=== PATIENT | male | born 1950 | race Caucasian/White ===

== ENCOUNTER 2019-03-15 16:14 | Emergency (ER) | payer MEDICARE ==
[~2019-03-15] VITALS: Ht 185.4 cm; Wt 90.7 kg
[2019-03-15] MEDS ORDERED: WELLBUTRIN SR100 MG ORAL (16:30)
[2019-03-15] MEDS ORDERED: TRAZODONE HCL100 MG ORAL (16:30)
--- NOTE | 2019-03-15 16:31 | NUR ---
ED Nurse Note: Pt came into the ER due to bug bites all over his body x 1 week. Pt denies having pain. Inflammation noted on the left wrist. Pt is A + O x4. Ambulatory. Skin warm to touch.
[2019-03-15 16:33] VITALS: BP 121/83
--- NOTE | 2019-03-15 17:09 | Emergency Room Report ---
History of Present Illness General Chief Complaint: Allergic Reaction Source: Patient Present Illness HPI 68-year-old male presents to the emergency department complaining of having multiple insect bites that he has acquired while sitting at a mode how he reports moderate itching he states several have surrounding erythema and increased warmth. Denies recent travel or ill contacts with similar symptoms.He states he is UTD with his vaccinations including Tdap. sustained while at motel. Pt. denies fevers, chills or swollen tender lymph nodes. Denies lesions/rashes elsewhere on the body. Denies new medications or body washes or creams. Denies swelling of the lips, tongue , throat or airway. Denies wheezing, or shortness of breath. Denies recent travel, recent illness or ill contacts. denies blisters, oral lesions, or sloughing of the skin Allergies: Coded Allergies: No Known Allergies (Unverified , 03/15/19) Patient History Past Medical History: see triage record Past Surgical History: none Pertinent Family History: none Immunizations: UTD Reviewed Nursing Documentation: PMH: Agreed; PSxH: Agreed Nursing Documentation-PMH Past Medical History: No History, Except For History Of Psychiatric Problem: Yes - DEPRESSION Review of Systems All Other Systems: negative except mentioned in HPI Physical Exam Vital Signs Date Time Temp Pulse Resp B/P (MAP) Pulse Ox O2 Delivery O2 Flow Rate FiO2 03/15/19 16:24 97.5 73 16 124/80 94 Room Air 03/15/19 16:33 95 Sp02 EP Interpretation: reviewed, normal General Appearance: no apparent distress, alert, GCS 15, non-toxic Head: normocephalic, atraumatic Eyes: bilateral eye normal inspection, bilateral eye PERRL ENT: hearing grossly normal, no angioedema, normal voice, other - no stridor Neck: full range of motion Respiratory: chest non-tender, lungs clear, normal breath sounds, no wheezing, speaking full sentences Cardiovascular #1: regular rate, rhythm, no edema, normal capillary refill Musculoskeletal: back normal, gait/station normal, normal range of motion, non- tender Neurologic: alert, oriented x3, responsive, motor strength/tone normal, sensory intact, speech normal, grossly normal Psychiatric: judgement/insight normal Skin: normal color, warm/dry, well hydrated, other - multiple insect bites, localized reaction and cellulitis- erythema and warmth of a bite proximal to the right knee. no blisters or vesicles. Lymphatic: no adenopathy Medical Decision Making PA Attestation Dr. Lemos is my supervising Physician whom patient management has been discussed with. Diagnostic Impression: Primary Impression: Insect bites of multiple sites, infected ER Course 68-year-old male presents to the emergency department complaining of having multiple insect bites that he has acquired while sitting at a mode how he reports moderate itching he states several have surrounding erythema and increased warmth. Denies recent travel or ill contacts with similar symptoms.He states he is UTD with his vaccinations including Tdap. sustained while at motel. Pt. denies fevers, chills or swollen tender lymph nodes. Denies lesions/rashes elsewhere on the body. Denies new medications or body washes or creams. Denies swelling of the lips, tongue , throat or airway. Denies wheezing, or shortness of breath. Denies recent travel, recent illness or ill contacts. denies blisters, oral lesions, or sloughing of the skin Ddx considered but are not limited to cellulitis, scabies, insect bites, tic bites, spider bites, contact dermatitis, Drug reaction, allergic reaction, fungal infection, lice. Vital signs: are WNL, pt. is afebrile H&PE are most consistent with multiple insect bites, localized reaction and cellulitis of bite proximal to the right knee. ORDERS: none required at this time, the diagnosis is clinical ED INTERVENTIONS: None required at this time. DISCHARGE: At this time pt. is stable for d/c to home. Will provide printed patient care instructions, and any necessary prescriptions. Care plan and follow up instructions have been discussed with the patient prior to discharge. Last Vital Signs Date Time Temp Pulse Resp B/P (MAP) Pulse Ox O2 Delivery O2 Flow Rate FiO2 03/15/19 16:33 97.3 63 20 121/83 98 Room Air 03/15/19 16:33 95 Status: improved Disposition: HOME, SELF-CARE Condition: Stable Scripts Hydrocortisone 2% Cream (ANTI-ITCH 2% CREAM) Y Cr 1 APPLIC TP Q6HR, #22 GM 2 Refills Prov: Mary Cote 03/15/19 Diphenhydramine Hcl (BENADRYL ALLERGY) 25 Mg Tablet 25 MG PO Q6HR, #30 TAB Prov: Mary Cote 03/15/19 Cephalexin* (KEFLEX*) 500 Mg Capsule 500 MG ORAL EVERY 12 HOURS for 7 Days, #14 CAP 0 Refills Prov: Mary Cote 03/15/19 Patient Instructions: Cellulitis, [id number], Insect Bite, [id number] Additional Instructions: Take medications as directed. Follow up with a Primary Care Provider in 3-5 days, even if your symptoms have resolved. --Please review list of primary care clinics, if you do not already have a primary care provider Return sooner to ED if new symptoms occur, or current symptoms become worse. - Please note that this Emergency Department Report was dictated using [employer] slotter operator technology software, occasionally this can lead to erroneous entry secondary to interpretation by the dictation equipment. Mary Cote Mar 15, 2019 17:09
[2019-03-15] MEDS ORDERED: BENADRYL ALLERG25 M1 PO (17:10)
[2019-03-15] MEDS ORDERED: ANTI-ITCH28 G1 TP (17:10)
[2019-03-15] MEDS ORDERED: CEPHALEXIN500 MG ORAL (17:10)
[2019-03-15 17:15] VITALS: BP 120/85
--- NOTE | 2019-03-15 17:16 | NUR ---
ER DISCHARGE NOTE: Patient is cleared to be discharged per ERMD, pt is aox4, on room air, with stable vital signs. pt was given dc and prescription instructions, pt was able to verbalize understanding, pt id band removed without complications. pt is able to ambulate with steady gait. pt took all belongings.
== END 2019-03-15 17:15 | disposition home or self-care (01) ==
LOC: EMR 17:10
DX: S80.261A Insect bite (nonvenomous), right knee, initial encounter (principal); W57.XXXA Bitten or stung by nonvenomous insect and other nonvenomous arthropods, initial encounter; Y92.9 Unspecified place or not applicable; F32.9 Major depressive disorder, single episode, unspecified
CPT/HCPCS: 99282

== ENCOUNTER 2019-06-04 20:59 | Emergency (ER) | payer MEDICARE, MEDICAID ==
[~2019-06-04] VITALS: Ht 185.4 cm; Wt 90.7 kg
[~2019-06-04 20:59] MED LIST: ANTI-ITCH28 G1 TP; BENADRYL ALLERG25 M1 PO; CEPHALEXIN500 MG ORAL; TRAZODONE HCL100 MG ORAL; WELLBUTRIN SR100 MG ORAL
--- NOTE | 2019-06-04 21:15 | NUR ---
ED Nurse Note: recieved pg from home with c/o left leg laceration, pt hit leg on side of pool and has non-bleeding laceration, pt deneis injury to any other area, pt has no cp, no sob, states just needs a stitch or two.
[2019-06-04 22:25] VITALS: BP 136/69
--- NOTE | 2019-06-04 22:25 | NUR ---
ED Nurse Note: ER DISCHARGE NOTE: Patient is cleared to be discharged per ERMD, pt is aox4, on room air, with stable vital signs. pt was given dc and prescription instructions, pt was able to verbalize understanding, pt id band removed without complications. pt is able to ambulate with steady gait. pt took all belongings.
--- NOTE | 2019-06-04 23:36 | Emergency Room Report ---
History of Present Illness General Chief Complaint: Lower Extremity Injury Source: Patient Present Illness HPI Patient presents with complaints of injury to the left lower leg reports an hour before arrival as he was getting out of the Pool he had a slip back downward injuring his left mid leg area Denies any loss of consciousness Denies any head injury patient has localized discomfort to the left anterior leg The cut appeared to be too large to close with tape and presents for further eval Allergies: Coded Allergies: No Known Allergies (Unverified , 03/15/19) Patient History Past Medical History: see triage record Pertinent Family History: none Reviewed Nursing Documentation: PMH: Agreed; PSxH: Agreed Nursing Documentation-PMH Past Medical History: No Stated History Review of Systems All Other Systems: negative except mentioned in HPI Physical Exam Vital Signs Date Time Temp Pulse Resp B/P (MAP) Pulse Ox O2 Delivery O2 Flow Rate FiO2 06/04/19 21:03 98.6 71 14 140/73 (95) 94 Room Air Sp02 EP Interpretation: reviewed, normal General Appearance: well appearing, no apparent distress Head: normocephalic, atraumatic Eyes: bilateral eye PERRL, bilateral eye EOMI ENT: hearing grossly normal, normal pharynx Neck: supple Respiratory: lungs clear, no respiratory distress, no retraction Cardiovascular #1: regular rate, rhythm Gastrointestinal: non tender, soft Musculoskeletal: normal inspection Neurologic: alert, oriented x3, responsive Psychiatric: normal inspection Skin: other - Approximately 1 cm laceration and skin abrasion left mid anterior tibial region no associated ecchymosis or expanding hematoma Lymphatic: no adenopathy Procedures Laceration/Wound Repair Laceration/Wound Repair : Consent: Verbal Wound Location: lower extremity Wound's Depth, Shape: into muscle Wound Length (cm): 1 Wound Explored: clean Irrigated w/ Saline (ccs): 200 Wound Debrided: minimal Wound Repaired With: sutures Suture Size/Type: 5:0 Number of Sutures: 1 Patient Tolerated: Well Complications: None Progress One suture at the midpoint of the laceration was applied with good approximation 2 Steri-Strips were applied one above and below the suture with appropriate approximation Medical Decision Making Diagnostic Impression: Primary Impression: laceration ER Course Patient had laceration repair as noted in the progress note patient tolerated the procedure well and at this time is stable for close outpatient follow-up Last Vital Signs Date Time Temp Pulse Resp B/P (MAP) Pulse Ox O2 Delivery O2 Flow Rate FiO2 06/04/19 22:25 98.4 85 16 136/69 99 Room Air Status: improved Disposition: HOME, SELF-CARE Condition: Improved Referrals: NON PHYSICIAN (PCP) PCP Patient Instructions: Laceration Care, Adult, [id number] Additional Instructions: Patient is provided with the discharge instructions notified to follow up with primary doctor in the next 2-3 days otherwise return to the er with any worsening symptoms. Please note that this report is being documented using [employer] technology. This can lead to erroneous entry secondary to incorrect interpretation by the dictating instrument. Aminta Garcia DO Jun 04, 2019 23:36
== END 2019-06-04 22:25 | disposition home or self-care (01) ==
LOC: EMR 21:41
DX: S81.812A Laceration without foreign body, left lower leg, initial encounter (principal); W01.0XXA Fall on same level from slipping, tripping and stumbling without subsequent striking against object, initial encounter; Y92.9 Unspecified place or not applicable
CPT/HCPCS: 99282

== ENCOUNTER 2019-06-13 23:33 | Emergency (ER) | payer MEDICARE, MEDICAID ==
[~2019-06-13] VITALS: Ht 185.4 cm; Wt 90.7 kg
[2019-06-13 23:49] VITALS: BP 134/78
--- NOTE | 2019-06-13 23:49 | NUR ---
ED Nurse Note: Patient presents with intentions to have sutures removed from left estrada area. Has been in 9 days.
--- NOTE | 2019-06-14 00:02 | Emergency Room Report ---
History of Present Illness General Chief Complaint: Wound Recheck/Suture Removal Source: Patient Present Illness HPI 68-year-old male presents for suture removal, 9 days ago he hurt his left estrada, no fevers no chills, he endorses some sharp pain with movement that has since resolved, patient presents for evaluation and suture removal Allergies: Coded Allergies: No Known Allergies (Unverified , 03/15/19) Patient History Past Medical History: see triage record Reviewed Nursing Documentation: PMH: Agreed; PSxH: Agreed Nursing Documentation-PMH Past Medical History: No Stated History Review of Systems All Other Systems: negative except mentioned in HPI Physical Exam Vital Signs Date Time Temp Pulse Resp B/P (MAP) Pulse Ox O2 Delivery O2 Flow Rate FiO2 06/13/19 23:39 98.1 64 14 134/78 (96) 94 Room Air Sp02 EP Interpretation: reviewed, normal General Appearance: well appearing, no apparent distress, alert Head: normocephalic, atraumatic Eyes: bilateral eye PERRL, bilateral eye EOMI ENT: uvula midline, moist mucus membranes Neck: supple, thyroid normal, supple/symm/no masses Respiratory: lungs clear, no respiratory distress, no retraction, no accessory muscle use Cardiovascular #1: normal peripheral pulses, regular rate, rhythm, no edema, no gallop, no murmur Gastrointestinal: non tender, soft, no guarding, no rebound Musculoskeletal: normal inspection Neurologic: alert, oriented x3 Psychiatric: mood/affect normal Skin: warm/dry, other - Wound left estrada, suture in place, wound clean dry and intact, Procedures Additional Procedure Procedure Narrative Suture removed from left estrada, Medical Decision Making Diagnostic Impression: Primary Impression: Encounter for removal of sutures ER Course Suture removed, disposition home with return precautions Last Vital Signs Date Time Temp Pulse Resp B/P (MAP) Pulse Ox O2 Delivery O2 Flow Rate FiO2 06/13/19 23:49 98.1 82 14 134/78 94 Room Air Disposition: HOME, SELF-CARE Condition: Improved Referrals: [facility] Patient Instructions: Wound Check Additional Instructions: The patient was provided with discharge instructions, notified to follow-up with a primary care doctor and or specialist in the next 24-48 hours, and to return to the ED if they have worsening of their symptoms. Please note that this report is being documented using [employer] technology. This can lead to erroneous entry secondary to incorrect interpretation by the dictating instrument. Rosas Sellers MD Jun 14, 2019 00:02
[2019-06-14 00:07] VITALS: BP 134/78
--- NOTE | 2019-06-14 00:07 | NUR ---
ED Nurse Note: Patient cleared for discharge, verbalized understanding of discharge instructions. ID band removed, patient departed with all belongings.
== END 2019-06-14 00:10 | disposition home or self-care (01) ==
LOC: EMR 23:59
DX: Z48.02 Encounter for removal of sutures (principal)
CPT/HCPCS: 99281

== ENCOUNTER 2019-08-18 13:55 | Emergency (ER) | payer MEDICARE, MEDICAID ==
[~2019-08-18] VITALS: Ht 185.4 cm; Wt 90.7 kg
[2019-08-18 14:45] VITALS: BP 138/75
--- NOTE | 2019-08-18 15:06 | Diagnostic Imaging Report ---
Indication: Right elbow pain Findings: 3 views of the right elbow were obtained. No acute fractures, malalignment, erosions or periostitis are identified. Tissue swelling in the area of the olecranon.. Impression: No acute fracture. Olecranon bursitis versus contusion
--- NOTE | 2019-08-18 15:08 | Emergency Room Report ---
History of Present Illness General Chief Complaint: Skin Rash/Abscess Source: Patient Present Illness HPI 69-year-old male with no significant past medical history here requesting aspiration of fluid in the right elbow. Patient reports that he fell on his elbow 1 week ago and his primary care noticed some erythema that started a day ago and fluid buildup in the right elbow started him on Keflex and sent him to drug regulatory affairs specialist for aspiration of fluid. However patient insurance was not accepted by the drug regulatory affairs specialist and patient came to the emergency room for aspiration. Patient has full range of motion of his elbow and rating the pain 5 out of 10 denying any pain radiation tingling numbness. Denies history of gout, diabetes, hypertension. Has not taken medication for pain. Denies fever and chills, chest pain shortness of breath. I made patient aware of the fact that he needs to follow-up with drug regulatory affairs specialist and aspiration will not take place in the emergency room patient agrees to follow- up with drug regulatory affairs specialist and I gave him a list of drug regulatory affairs specialist Allergies: Coded Allergies: No Known Allergies (Unverified , 03/15/19) Patient History Past Medical History: see triage record Past Surgical History: unable to obtain Pertinent Family History: none Immunizations: UTD Reviewed Nursing Documentation: PMH: Agreed; PSxH: Agreed Nursing Documentation-PMH Past Medical History: No Stated History Review of Systems All Other Systems: negative except mentioned in HPI Physical Exam Vital Signs Date Time Temp Pulse Resp B/P (MAP) Pulse Ox O2 Delivery O2 Flow Rate FiO2 08/18/19 14:05 97.0 58 16 138/75 (96) 97 Room Air Sp02 EP Interpretation: reviewed, normal General Appearance: no apparent distress, alert, GCS 15, non-toxic Head: normocephalic, atraumatic Eyes: bilateral eye normal inspection, bilateral eye PERRL ENT: hearing grossly normal, normal pharynx, no angioedema, normal voice Neck: full range of motion, supple/symm/no masses Respiratory: chest non-tender, lungs clear, normal breath sounds, speaking full sentences Cardiovascular #1: regular rate, rhythm, no edema, no murmur, normal capillary refill Cardiovascular #2: 2+ radial (R), 2+ radial (L) Gastrointestinal: normal bowel sounds, non tender, soft, non-distended, no guarding, no rebound Rectal: deferred Genitourinary: no CVA tenderness Musculoskeletal: back normal, gait/station normal, normal range of motion, non- tender, no calf tenderness, swelling - right elbow Neurologic: alert, oriented x3, responsive, motor strength/tone normal, sensory intact, speech normal Psychiatric: judgement/insight normal, memory normal, mood/affect normal, no suicidal/homicidal ideation Skin: other - right elbow bursitis Lymphatic: no adenopathy Medical Decision Making PA Attestation All my diagnosis and treatment plans were reviewed ad discussed with my supervising physician Dr. Morocho Diagnostic Impression: Primary Impression: Olecranon bursitis ER Course 69-year-old male with no significant past medical history here requesting aspiration of fluid in the right elbow. Patient reports that he fell on his elbow 1 week ago and his primary care noticed some erythema that started a day ago and fluid buildup in the right elbow started him on Keflex and sent him to drug regulatory affairs specialist for aspiration of fluid. However patient insurance was not accepted by the drug regulatory affairs specialist and patient came to the emergency room for aspiration. Patient has full range of motion of his elbow and rating the pain 5 out of 10 denying any pain radiation tingling numbness. Denies history of gout, diabetes, hypertension. Has not taken medication for pain. Denies fever and chills, chest pain shortness of breath. I made patient aware of the fact that he needs to follow-up with drug regulatory affairs specialist and aspiration will not take place in the emergency room patient agrees to follow- up with drug regulatory affairs specialist and I gave him a list of drug regulatory affairs specialist Ddx considered but are not limited to: Ankle sprain versus strain versus fracture,, septic bursitis and gout of elbow, olecranon bursitis due to contusion Vital signs: are WNL, pt. is afebrile H&PE are most consistent with: Olecranon bursitis secondary to contusion ORDERS: Right elbow x-ray, naproxen ED INTERVENTIONS: None required at this time. DISCHARGE: At this time pt. is stable for d/c to home. Will provide printed patient care instructions, and any necessary prescriptions. Care plan and follow up instructions have been discussed with the patient prior to discharge. I advised the patient to follow-up with drug regulatory affairs specialist for aspiration of bursitis as he needs to be done by a specialist. Patient agrees. Patient also agrees to take anti-inflammatories for pain and continue taking Keflex as is been prescribed by his primary care physician. If worsening symptoms return to the emergency room. At this time patient is afebrile and in no apparent distress no bony tenderness noted and affected site is not warm to touch and due to patient's given history of no gout, diabetes, or any other medical history no further work-up is needed to test the patient for septic bursitis, gout and etc. Also since patient fell on the affected side 1 week ago symptoms are secondary to the fall. Patient also had blood work done by primary care which are within normal limits. Other X-Ray Diagnostic Results Other X-Ray Diagnostic Results : X-Ray ordered: right elbow # of Views/Limited Vs Complete: 3 View Indication: Swelling EP Interpretation: Yes PA Xray: Interpretation reviewed, by supervising MD, and agrees with findings. Interpretation: no dislocation, no fractures Impression: Other - bursitis Electronically Signed by: Becky Montanez PA-C Last Vital Signs Date Time Temp Pulse Resp B/P (MAP) Pulse Ox O2 Delivery O2 Flow Rate FiO2 08/18/19 14:45 97.0 16 138/75 97 Room Air 08/18/19 14:05 58 Disposition: HOME, SELF-CARE Condition: Stable Scripts Naproxen* (NAPROXEN*) 500 Mg Tablet 500 MG ORAL TWICE A DAY, #30 TAB Prov: Becky Mahmood 08/18/19 Referrals: Jose M Gonzalez [facility] Open 24 hour /7 days a week by Appointment Only [address] [facility] [address] [facility] [address] Patient Instructions: Elbow Bursitis Additional Instructions: Follow-up with primary care provider also go to drug regulatory affairs specialist for aspiration of the fluid if worsening symptoms, fever and chills return to the emergency room Becky Mahmood Aug 18, 2019 15:08
[2019-08-18] MEDS ORDERED: NAPROXEN500 M2 ORAL (15:09)
[2019-08-18 15:24] VITALS: BP 138/75
--- NOTE | 2019-08-18 15:26 | NUR ---
ER DISCHARGE NOTE: Patient is cleared to be discharged per ERMD, pt is aox4, on room air, with stable vital signs. pt was given dc and prescription instructions, pt was able to verbalize understanding, pt is able to ambulate with steady gait. pt took all belongings.
== END 2019-08-18 15:30 | disposition home or self-care (01) ==
LOC: EMR 14:17
DX: M70.21 Olecranon bursitis, right elbow (principal)
CPT/HCPCS: 99283

== ENCOUNTER 2020-01-09 21:51 | Emergency (ER) | payer MEDICARE, MEDICAID ==
[~2020-01-09] VITALS: Ht 185.4 cm; Wt 88.5 kg
[~2020-01-09 21:51] MED LIST changes: +NAPROXEN500 M2 ORAL
[2020-01-09] MEDS ORDERED: Tetanus/Diptheria/Pertussis IM ONE (23:15)
--- NOTE | 2020-01-09 23:21 | NUR ---
ED Nurse Note: Patient walked in to ER due to lac of his R wrist. Patient was working out 194, barbell fell on R hand. Patient calm, AAO x4, VSS at this time.
--- NOTE | 2020-01-09 23:28 | Emergency Room Report ---
History of Present Illness General Chief Complaint: Upper Extremity Injury Source: Patient Present Illness HPI 69-year-old male who has no past medical history who presents with chief complaint of right hand injury. He was doing bench press and the bar slipped sideways. He try to catch it and his hand got caught by the weights. This occurred a few hours ago. He sustained a laceration over the dorsum of the hand by the fourth and fifth knuckle. No other injury. No bleeding or pain. Allergies: Coded Allergies: No Known Allergies (Unverified , 03/15/19) Patient History Past Medical History: see triage record, old chart reviewed Past Surgical History: none Pertinent Family History: none Social History: Denies: smoking Immunizations: other Reviewed Nursing Documentation: PMH: Agreed; PSxH: Agreed Review of Systems Eye: Denies: eye pain, blurred vision ENT: Denies: ear pain, nose congestion, throat swelling Respiratory: Denies: cough, shortness of breath Cardiovascular: Denies: chest pain, palpitations Gastrointestinal: Denies: abdominal pain, diarrhea, nausea, vomiting Musculoskeletal: Reports: joint pain; Denies: back pain Skin: Denies: rash Neurological: Denies: headache, numbness Endocrine: Denies: increased thirst, increased urine Hematologic/Lymphatic: Denies: easy bruising All Other Systems: negative except mentioned in HPI Physical Exam Vital Signs Date Time Temp Pulse Resp B/P (MAP) Pulse Ox O2 Delivery O2 Flow Rate FiO2 01/09/20 21:59 98.2 82 18 95 Vitals unremarkable Sp02 EP Interpretation: reviewed, normal General Appearance: well appearing, no apparent distress, alert Head: normocephalic, atraumatic Eyes: bilateral eye PERRL, bilateral eye EOMI ENT: hearing grossly normal, normal pharynx Neck: full range of motion, supple, no meningismus Respiratory: chest non-tender, lungs clear, normal breath sounds Cardiovascular #1: regular rate, rhythm, no murmur Gastrointestinal: normal bowel sounds, non tender, no mass, no organomegaly, no bruit, non-distended Musculoskeletal: back normal, normal range of motion, gait/station normal, other - Right hand: He has a flap laceration measuring about 2 and half centimeter the dorsum of his hand over the fourth metacarpal joint. Full range of motion. No tendon involvement. No foreign body. Psychiatric: mood/affect normal Procedures Laceration/Wound Repair Laceration/Wound Repair : Consent: Verbal Wound Location: upper extremity Wound's Depth, Shape: linear, irregular, flap, contused tissue Wound Length (cm): 3 Wound Explored: clean Irrigated w/ Saline (ccs): 500 Anesthesia: 1% Lidocaine Volume Anesthetic (ccs): 3 Wound Repaired With: sutures Suture Size/Type: 5:0, proline Number of Sutures: 5 Patient Tolerated: Well Complications: None Medical Decision Making Diagnostic Impression: Primary Impression: Laceration of hand Qualified Codes: S61.411A - Laceration without foreign body of right hand, initial encounter ER Course Patient with right hand laceration. No evidence of any fracture dislocation. No foreign body. No tendon vomiting. Will discharge home. Other X-Ray Diagnostic Results Other X-Ray Diagnostic Results : X-Ray ordered: Right hand x-rays # of Views/Limited Vs Complete: 3 View Indication: Pain EP Interpretation: Yes Interpretation: no dislocation, no soft tissue swelling, no fractures Impression: No acute disease Electronically Signed by: Prince Cunningham MD Last Vital Signs Date Time Temp Pulse Resp B/P (MAP) Pulse Ox O2 Delivery O2 Flow Rate FiO2 01/09/20 23:19 98.2 18 95 01/09/20 21:59 82 Status: improved Disposition: HOME, SELF-CARE Condition: Stable Additional Instructions: Keep wound clean. Follow-up with your doctor and 7 to 10 days for suture removal. Return if worse or evidence of infection. Prince Cunningham MD Jan 09, 2020 23:28
[2020-01-09] MEDS ORDERED: Neosporin Oint Ud Pkt TOPIC ONE (23:45)
[2020-01-09 23:50] VITALS: BP 128/73
--- NOTE | 2020-01-10 09:09 | Diagnostic Imaging Report ---
Indication: Trauma, pain Technique: 3 views right hand Comparison: none Findings: No acute fractures. No dislocations. The joint spaces are preserved. Impression: Negative
== END 2020-01-09 23:50 | disposition home or self-care (01) ==
LOC: EMR 23:50
DX: S61.411A Laceration without foreign body of right hand, initial encounter (principal); Z23 Encounter for immunization; W22.8XXA Striking against or struck by other objects, initial encounter; Y92.39 Other specified sports and athletic area as the place of occurrence of the external cause
CPT/HCPCS: 90471; 90715; 99283

== ENCOUNTER 2020-01-19 23:24 | Emergency (ER) | payer MEDICARE, MEDICAID ==
[~2020-01-19] VITALS: Ht 185.4 cm; Wt 89.8 kg
[2020-01-19 23:44] VITALS: BP 137/75
--- NOTE | 2020-01-19 23:45 | NUR ---
ER Nurse Note: Pt walked in for follow up check up on RT hand. Pt was in ER for lac, got stitches placed 01/09. Pt returned for stitch removal. Site clean, no signs of infection. Pt able to move fingers. Will continue to [facility].
[2020-01-19 23:50] VITALS: BP 137/75
--- NOTE | 2020-01-19 23:50 | NUR ---
ED Nurse Note: ERMD removed one stitch. Pt agreed to follow up [facility] primary care physcian within 2-3 days for stitch removal. All orders completed per ERMD orders. Pt cleared by health care Provider for discharge. DC instructions/prescription was given and explained to pt and verbalized understanding of teachings. Instructed pt to follow up with primary care physican within one week. All medical deviecs such as ID band removed. Pt is AAO x4, ambulatory and left with all personal belongings.
--- NOTE | 2020-01-20 01:29 | Emergency Room Report ---
History of Present Illness General Chief Complaint: Wound Recheck/Suture Removal Source: Patient Present Illness HPI 69-year-old male presents the ED for suture removal. Had sutures placed in his right hand last Wednesday. Is here for suture removal. Denies pain. Denies any discharge. Denies bleeding. No other aggravating relieving factors. Denies any other associated symptoms Allergies: Coded Allergies: No Known Allergies (Unverified , 03/15/19) Patient History Past Medical History: none Past Surgical History: none Pertinent Family History: none Social History: Denies: smoking, alcohol use, drug use Immunizations: UTD Reviewed Nursing Documentation: PMH: Agreed; PSxH: Agreed Nursing Documentation-PMH Past Medical History: No Stated History Review of Systems All Other Systems: negative except mentioned in HPI Physical Exam Vital Signs Date Time Temp Pulse Resp B/P (MAP) Pulse Ox O2 Delivery O2 Flow Rate FiO2 01/19/20 23:27 98.1 60 14 137/75 (95) 96 Room Air Sp02 EP Interpretation: reviewed, normal General Appearance: no apparent distress, alert, GCS 15, non-toxic Head: normocephalic Eyes: bilateral eye normal inspection, bilateral eye PERRL ENT: normal ENT inspection Neck: normal inspection Respiratory: normal inspection Cardiovascular #1: normal inspection Gastrointestinal: normal inspection Rectal: deferred Genitourinary: no CVA tenderness Musculoskeletal: back normal, normal range of motion, gait/station normal, non- tender Neurologic: alert, motor strength/tone normal, oriented x3, sensory intact, responsive, speech normal Psychiatric: normal inspection Skin: other - wound healing to dorsum R hand. sutures in place Lymphatic: normal inspection Medical Decision Making Diagnostic Impression: Primary Impression: Encounter for wound re-check ER Course Hospital Course 69-year-old M presents to ED for wound check. s/p laceration R hand Clinical course Patient placed on stretcher. Wound appears clean dry and intact with sutures in place. No erythema or induration. When I removed 1 stitch there appears to be some separation. It has been currently 10 days. I discussed with patient that it may need a few more days before sutures can be removed. Patient agrees. States he will follow -up with his PMD or come back in a few more days for suture removal. Diagnosis - encounter for wound re-check Stable and discharged to home. Followup with PMD or return to ED for suture removal. Return to ED if any signs of infection develop Last Vital Signs Date Time Temp Pulse Resp B/P (MAP) Pulse Ox O2 Delivery O2 Flow Rate FiO2 01/19/20 23:50 98.1 72 14 137/75 96 Room Air Status: improved Disposition: HOME, SELF-CARE Condition: Stable Referrals: NON PHYSICIAN (PCP) Patient Instructions: Wound Check Additional Instructions: return to us or have your primary doctor remove the stitches in the next 2-3 days Nehemias Canchola MD Jan 20, 2020 01:29
== END 2020-01-19 23:50 | disposition home or self-care (01) ==
LOC: EMR 23:41
DX: Z48.02 Encounter for removal of sutures (principal); S61.411D Laceration without foreign body of right hand, subsequent encounter; X58.XXXD Exposure to other specified factors, subsequent encounter
CPT/HCPCS: 99281